=== PATIENT | male | born 1985 | race Caucasian/White ===

== ENCOUNTER 2019-01-12 19:30 | Emergency (ER) | payer OTHER ==
[2019-01-12 20:39] VITALS: BP 122/81; PULSE 70; RESP 18; TEMP 98.2
[2019-01-12] MEDS ORDERED: LIDOCAINE 1% INJ 10MG/ML (20 ML MDV) SQ ONE (21:26)
--- NOTE | 2019-01-12 22:01 | XR ---
EXAMINATION TYPE: XR elbow complete RT DATE OF EXAM: 01/12/2019 COMPARISON: NONE HISTORY: 33-year-old male posterior laceration, pain and injury TECHNIQUE: 3 views FINDINGS: There is soft tissue swelling overlying the olecranon process. No elbow joint effusion. No acute frac ture, subluxation, or dislocation seen. Nonspecific tiny 2 mm density interposed between the radiocap itellar and ulnar trochlear joints, possible tiny loose body. IMPRESSION: Olecranon soft tissue swelling. No underlying elbow joint effusion or acute osseous abnormality seen.
--- NOTE | 2019-01-12 22:54 | ED ---
Wound/Laceration HPI - General Chief Complaint: Wound/Laceration Stated Complaint: [facility]-Arm Lac Time Seen by Provider: 01/12/19 20:48 Source: patient Mode of arrival: ambulatory Limitations: no limitations - History of Present Illness Initial Comments: 33-year-old male presents for right elbow laceration. Patient states that occurred at work. Patient states bleeding control. Patient states tetanus is updated. Patient denies numbness tingling or loss sensation. Patient states he has full range of motion. Patient states he thought he might need sutures and presents immersed from for evaluation. Review systems negative upon arrival patient appears well no signs acute distress. Denies fall or other areas of injury. - Related Data Allergies Allergy/AdvReac Type Severity Reaction Status Date / Time No Known Allergies Allergy Verified 01/12/19 20:39 Review of Systems ROS Statement: Those systems with pertinent positive or pertinent negative responses have been documented in the HPI. ROS Other: All systems not noted in ROS Statement are negative. Past Medical History Past Medical History: No Reported History History of Any Multi-Drug Resistant Organisms: None Reported Past Surgical History: No Surgical Hx Reported Past Psychological History: No Psychological Hx Reported Smoking Status: Current every day smoker Past Alcohol Use History: Occasional Past Drug Use History: None Reported General Exam - General Exam Comments Initial Comments: General: The patient is awake and alert, in no distress, and does not appear acutely ill. Eye: Pupils are equal, round and reactive to light, extra-ocular movements are intact. No nystagmus. There is normal conjunctiva bilaterally. No signs of icterus. Ears, nose, mouth and throat: There are moist mucous membranes and no oral lesions. Neck: The neck is supple, there is no tenderness or JVD. Cardiovascular: There is a regular rate and rhythm. No murmur, rub or gallop is appreciated. Respiratory: Lungs are clear to auscultation, respirations are non-labored, breath sounds are equal. No wheezes, stridor, rales, or rhonchi. Gastrointestinal: Soft, non-distended, non-tender abdomen without masses or organomegaly noted. There is no rebound or guarding present. Musculoskeletal: Normal ROM, no tenderness. Strength 5/5. Sensation intact. Pulses equal bilaterally 2+. Neurological: A&O x 3. CN II-XII intact, There are no obvious motor or sensory deficits. Coordination appears grossly intact. Speech is normal. Skin: Skin is warm and dry and no rashes. 1.6 cm laceration of the right forearm just distal to elbow joint. no exposure of underlying structures, no fb noted. Psychiatric: Cooperative, appropriate mood & affect, normal judgment. Limitations: no limitations Course Vital Signs 01/12/19 20:36 Temperature 98.2 F Pulse Rate 70 Respiratory 18 Rate Blood Pressure 122/81 O2 Sat by Pulse 100 Oximetry Procedures - Laceration Laceration #1 Consent Obtained: verbal consent Indication: laceration Site: upper extremity Size (cm): 1 Description: linear Depth: simple, single layer Anesthetic Used: lidocaine 1% Anesthesia Technique: local infiltration Amount (mls): 2 Pre-repair: wound explored, irrigated extensively, deep structures intact Type of Sutures: nylon Size of Sutures: 4-0 Number of Sutures: 4 Technique: simple, interrupted Patient Tolerated Procedure: well, no complications Medical Decision Making - Medical Decision Making 33-year-old male presenting today for chief complaint of right elbow laceration. Laceration noted. No exposure of underlying structures. No evidence of obvious foreign body. Imaging studies were obtained revealing small 2 mm possible foreign body. Wound was extensively irrigated and explored no evidence of foreign body. Cleansed with iodine repaired. No evidence of acute osseous injury. Patient is not a diabetic. Patient was instructed to return for suture removal in 7 days. Return parameters including signs of infection were discussed wiht patient. Patient was discharged appearing well Disposition Clinical Impression: Elbow laceration Disposition: HOME SELF-CARE Condition: Good Instructions (If sedation given, give patient instructions): Care For Your Stitches (ED), Laceration (ED) Additional Instructions: Please use medication as discussed. Please follow-up with family doctor in the next 2 days for wound check, return for suture removal in the next 7-10 days. Please return to emergency room if the symptoms increase or worsen or for any other concerns. Is patient prescribed a controlled substance at d/c from ED?: No Referrals: None,Stated [Primary Care Provider] - 1-2 days Time of Disposition: 22:53
== END 2019-01-12 23:19 | disposition home or self-care (01) ==
LOC: EC 19:30
DX: S51.011A Laceration without foreign body of right elbow, initial encounter (principal); F17.200 Nicotine dependence, unspecified, uncomplicated; W31.1XXA Contact with metalworking machines, initial encounter; Y92.69 Other specified industrial and construction area as the place of occurrence of the external cause; Y99.0 Civilian activity done for income or pay
CPT/HCPCS: 73080; 99283; 12001; J2001

== ENCOUNTER 2023-02-12 19:17 | Emergency (ER) | payer OTHER ==
[2023-02-12 19:26] VITALS: RESP 18
--- NOTE | 2023-02-12 19:37 | ED ---
Fall HPI - General Chief Complaint: Fall Stated Complaint: [facility], FALL-3FT, No Thinners Time Seen by Provider: 02/12/23 19:19 Source: patient, RN notes reviewed Mode of arrival: ambulatory Limitations: no limitations - History of Present Illness Initial Comments: This is a 37-year-old male who presents to the emergency department for a fall. Patient was at work when he tripped and fell from a standing position, landing on his left side. Currently complaining of pain along the left rib cage and left knee. Denies hitting his head or sustaining any loss of consciousness. Not taking any blood thinners. Denies any fevers, chills, sore throat, cough, dyspnea, chest pain, palpitations, abdominal pain, nausea, vomiting, diarrhea, back pain, or headaches. MD Complaint: fall - Related Data Previous Rx's Medication Instructions Recorded Ibuprofen [Motrin] 800 mg PO Q8H PRN #30 tab 02/12/23 Lidocaine 5% Patch [Lidoderm 5% 1 patch TOPICAL DAILY PRN #30 patch 02/12/23 Patch] methocarbamoL [Robaxin-750] 1,500 mg PO QID PRN #30 tab 02/12/23 Allergies Allergy/AdvReac Type Severity Reaction Status Date / Time No Known Allergies Allergy Verified 01/12/19 20:39 Review of Systems ROS Statement: Those systems with pertinent positive or pertinent negative responses have been documented in the HPI. ROS Other: All systems not noted in ROS Statement are negative. Past Medical History Past Medical History: No Reported History History of Any Multi-Drug Resistant Organisms: None Reported Past Surgical History: No Surgical Hx Reported Past Psychological History: No Psychological Hx Reported Smoking Status: Current every day smoker Past Alcohol Use History: Occasional Past Drug Use History: None Reported General Exam Limitations: no limitations General appearance: alert, in no apparent distress Head exam: Present: atraumatic, normocephalic, normal inspection Respiratory exam: Present: normal lung sounds bilaterally. Absent: respiratory distress, wheezes, rales, rhonchi, stridor Cardiovascular Exam: Present: regular rate, normal rhythm, normal heart sounds. Absent: systolic murmur, diastolic murmur, rubs, gallop, clicks GI/Abdominal exam: Present: other (Tenderness to palpation over the left lower rib cage) Neurological exam: Present: alert, oriented X3, CN II-XII intact Psychiatric exam: Present: normal affect, normal mood Skin exam: Present: other (Abrasion over the left lower rib cage and medial aspect of the left knee. No active bleeding.) Course Vital Signs 02/12/23 02/12/23 19:22 21:23 Temperature 99.0 F 98.1 F Pulse Rate 69 88 Respiratory 18 18 Rate Blood Pressure 111/75 138/72 O2 Sat by Pulse 99 98 Oximetry Medical Decision Making - Medical Decision Making This is a 37-year-old male who presents to the emergency department for a fall. Was pt. sent in by a medical professional or institution? @ -[facility] Did you speak to anyone other than the patient for history? @ -No Did you review nursing and triage notes? @ -Yes, and I agree, it is accurate with regards to the patient's symptoms. Were old charts reviewed? @ -No Differential Diagnosis? @ -Differential Rib Pain: Fracture, contusion, abrasion, this is not meant to be an all-inclusive list. EKG interpreted by me (3pts min.)? @ -Not obtained X-rays interpreted by me (1pt min.)? @ -X-ray of the left knee and left rib cage obtained. My interpretation identifies a left rib fracture. My interpretation of the left knee x-ray identifies no acute fractures or dislocations. CT interpreted by me (1pt min.)? @ -Not obtained U/S interpreted by me (1pt. min.)? @ -Not obtained What testing was considered but not performed? (CT, X-rays, U/S, labs)? Why? @ -None What meds were considered but not given? Why? @ -None Did you discuss the management of the patient with other professionals? @ -No Did you reconcile home meds? @ -No Was smoking cessation discussed for >3mins.? @ -No Was critical care preformed (if so, how long)? @ -No Were there social determinants of health that impacted care today? How? (Homelessness, low income, unemployed, alcoholism, drug addiction, transportation, low edu. Level, literacy, decrease access to med. care, [facility], rehab)? @ -No Was there de-escalation of care discussed even if they declined? (Discuss DNR or withdrawal of care, Hospice)? @ -No What co-morbidities impacted this encounter? (DM, HTN, Smoking, COPD, CAD, Cancer, CVA, Hep., AIDS, mental health diagnosis, sleep apnea, morbid obesity)? @ -None Was patient admitted / discharged? @ -Discharged. X-rays of the left knee and left rib cage with pa chest obtained. Findings reveal a left seventh rib fracture. This was discussed with the patient. Toradol and a lidocaine patch provided in the emergency department. Prescriptions for Ibuprofen, lidocaine patches, and Robaxin provided with dosing instructions reviewed. Advised that the Robaxin is sedating and he should avoid driving or operating machinery when taking this. Also advised the patient, that while it is painful, he needs to make sure that he takes several deep breaths each hour to reduce the risk of developing a secondary pneumonia. Undiagnosed new problem with uncertain prognosis? @ -None Drug Therapy requiring intensive monitoring for toxicity (Heparin, Nitro, Insulin, Cardizem)? @ -None Were any procedures done? @ -None Diagnosis/symptom? @ -Fall, left knee pain, left rib fracture Acute, or Chronic, or Acute on Chronic? @ -Acute Uncomplicated (without systemic symptoms) or Complicated (systemic symptoms)? @ -Uncomplicated Side effects of treatment? @ -None Exacerbation, Progression, or Severe Exacerbation] @ -Not applicable Poses a threat to life or bodily function? @ -No Return precautions reviewed in depth, the patient is instructed to return to the emergency department with any new, worsening, or concerning symptoms. Patient verbalized understanding. This case was discussed in detail with the attending ED physician, Dr. Nick. Presentation, findings, and treatment plan discussed in detail as well. - Radiology Data Radiology results: report reviewed, image reviewed Disposition Clinical Impression: Fall, Left rib fracture, Left knee pain Disposition: HOME SELF-CARE Instructions (If sedation given, give patient instructions): Rib Fracture (ED) Additional Instructions: Return to the emergency department with any new, worsening, or concerning symptoms. Alternate with ibuprofen and Tylenol as needed for pain relief. You can use the lidocaine patches daily as well. Take the muscle relaxant as 1-2 tablets up to 4 times daily. Be aware that this may make you drowsy and you should not drive or operate machinery when taking this. Make sure you take several deep breaths every hour despite the pain to reduce your risk of developing a secondary pneumonia. Follow up with your primary care provider in 1-2 days. Prescriptions: Lidocaine 5% Patch [Lidoderm 5% Patch] 1 patch TOPICAL DAILY PRN #30 patch PRN Reason: Pain Ibuprofen [Motrin] 800 mg PO Q8H PRN #30 tab PRN Reason: Pain methocarbamoL [Robaxin-750] 1,500 mg PO QID PRN #30 tab PRN Reason: Pain Is patient prescribed a controlled substance at d/c from ED?: No Referrals: None,Stated [Primary Care Provider] - 1-2 days
--- NOTE | 2023-02-12 19:59 | XR ---
EXAMINATION TYPE: XR ribs LT w pa chest xray DATE OF EXAM: 02/12/2023 7:45 PM INDICATION: Patient age:Male; 37 years old; Reason for study: Pain after fall; [facility]. COMPARISON: None TECHNIQUE: Frontal and oblique views of the left ribs with frontal chest radiograph. FINDINGS: Acute left rib 7 cortical step-off seen on one view. The remainder of the midthigh to be in tact. The remainder of the chest is unremarkable. IMPRESSION: Left rib 7 fracture laterally.
--- NOTE | 2023-02-12 20:00 | XR ---
EXAMINATION TYPE: XR knee complete LT DATE OF EXAM: 02/12/2023 7:45 PM INDICATION: Patient age:Male; 37 years old; Reason for study: Pain after fall; [facility]. COMPARISON: None. TECHNIQUE: The Left knee(s) was examined in Frontal, lateral and oblique projections. FINDINGS: No evidence of any acute osseous pathology, soft tissue swelling, or joint effusion is no yenny. IMPRESSION: 1. No acute osseous pathology.
[2023-02-12] MEDS ORDERED: IBUPROFEN 600 MG STARTER PACK 4 TAB BTL PO STA (20:28)
[2023-02-12] MEDS ORDERED: LIDOCAINE 5% PATCH TOPICAL ONE (20:28)
[2023-02-12] MEDS ORDERED: ACET/COD 300 MG/30 MG STARTER PACK 6 TAB BTL PO STA (20:28)
[2023-02-12] MEDS ORDERED: KETOROLAC 15 MG/ML 1 ML VIAL IM STA (20:28)
[2023-02-12 21:30] VITALS: BP 138/72; PULSE 88; TEMP 98.1
== END 2023-02-12 21:30 | disposition home or self-care (01) ==
LOC: EC 19:17
DX: S22.32XA Fracture of one rib, left side, initial encounter for closed fracture (principal); S80.212A Abrasion, left knee, initial encounter; F17.200 Nicotine dependence, unspecified, uncomplicated; W01.0XXA Fall on same level from slipping, tripping and stumbling without subsequent striking against object, initial encounter; Y99.0 Civilian activity done for income or pay
CPT/HCPCS: 71101; 73562; 99283; 96372; J1885

== ENCOUNTER → 2023-02-18 | Outpatient (CLI) | payer OTHER ==
--- NOTE | 2023-02-18 13:49 | US ---
EXAMINATION TYPE: US venous doppler duplex LE LT DATE OF EXAM: 02/18/2023 1:16 PM COMPARISON: NONE CLINICAL INDICATION: Male, 38 years old with history of LLE; S80.02XD CONTUSION OF LEFT KNEE; Left le g pain and bruising following fall at work last week SIDE PERFORMED: Left TECHNIQUE: The lower extremity deep venous system is examined utilizing real time linear array sonog chel with graded compression, doppler sonography and color-flow sonography. VESSELS IMAGED: Common Femoral Vein Deep Femoral Vein Greater Saphenous Vein * Femoral Vein Popliteal Vein Small Saphenous Vein * Proximal Calf Veins (* superficial vessels) Left Leg: Appears negative for DVT IMPRESSION: Grayscale, color doppler, spectral doppler imaging performed of the deep veins of the lo wer extremities. There is normal flow, compressibility, vascular waveforms.
== END | disposition home or self-care (01) ==
LOC: RADUSWWP 12:48
PROVIDERS: ATTEND Emergency Medicine
DX: S80.02XD Contusion of left knee, subsequent encounter (principal)

== ENCOUNTER → 2023-03-01 | Outpatient (CLI) | payer OTHER ==
--- NOTE | 2023-03-01 13:38 | XR ---
EXAMINATION TYPE: XR knee complete LT DATE OF EXAM: 03/01/2023 COMPARISON: 02/12/2023 HISTORY: 38-year-old male S80.02XD TECHNIQUE: 3 views FINDINGS: Small knee joint effusion. Anterior soft tissue swelling. Pronounced medial sided soft tissue swellin g as well. No acute fracture, subluxation, or dislocation seen. IMPRESSION: Some anterior soft tissue swelling. More severe medial sided soft tissue swelling. There is a small j oint effusion but without acute osseous abnormality seen. Consider MRI to assess for internal derange ment if clinically indicated.
== END | disposition home or self-care (01) ==
LOC: RADXRMAIN 13:09
PROVIDERS: ATTEND Emergency Medicine
DX: S80.02XD Contusion of left knee, subsequent encounter (principal); X58.XXXD Exposure to other specified factors, subsequent encounter; M25.462 Effusion, left knee

== ENCOUNTER → 2024-01-21 | Outpatient (CLI) | payer OTHER ==
--- NOTE | 2024-01-21 11:40 | XR ---
EXAMINATION TYPE: XR elbow complete LT DATE OF EXAM: 01/21/2024 11:36 AM INDICATION: Patient age:Male; 38 years old; Reason for study: M70.22 OLECRANON BURSITIS, LEFT ELBOW; [facility]. COMPARISON: None TECHNIQUE: The left elbow was examined in AP, lateral, and oblique projections. FINDINGS: No acute fracture or dislocation. Minimal anterior fat pad is identified. No posterior fat pad. Soft tissue swelling at the olecranon. There is spurring at the olecranon. No evidence of joint effusion is present. IMPRESSION: 1. No evidence of acute fracture. 2. Soft tissue swelling at the olecranon consistent with bursitis. 3. Small spurring at the olecranon.
== END | disposition home or self-care (01) ==
LOC: RADXRMAIN 11:22
PROVIDERS: ATTEND Emergency Medicine
DX: M70.22 Olecranon bursitis, left elbow (principal); M79.89 Other specified soft tissue disorders